=== PATIENT | female | born 1960 | race Caucasian/White ===

== ENCOUNTER → 2023-09-02 07:31 | Outpatient (REF) | payer BC, SELFPAY ==
[2023-09-02 08:39] LABS: ALT (SGPT) 24 U/L (0-35); AST (SGOT) 23 U/L (14-36); Albumin 4.3 g/dl (3.5-5.0); Alkaline Phosphatase 92 U/L (38-126); Blood Urea Nitrogen 20 mg/dl (7-17); Calcium 9.4 mg/dl (8.4-10.2); Carbon Dioxide 28 mmol/L (22-30); Chloride 105 mmol/L (98-107); Glucose 110 mg/dl (70-99); Potassium 4.4 mmol/L (3.5-5.1); Sodium 138 mmol/L (135-145); Total Bilirubin 0.7 mg/dl (0.2-1.3); Total Protein 7.1 g/dl (6.3-8.2); eGFR > 60.00
[2023-09-02 08:56] LABS: Glycohemoglobin (HgbA1c) 6.4 % (4.0-5.6)
[2023-09-02 09:07] LABS: TSH 8.16 uIU/ml (0.47-4.68)
[2023-09-02 09:24] LABS: Microalbumin, Random Urine 0.6 mg/dl (0.6-1.7); Microalbumin/creatinine Ratio 3.5 mg/g
== END ==
LOC: REG 07:31
PROVIDERS: ATTENDING PHYSICIAN Internal Medicine Endocrinology, Diabetes & Metabolism; FAMILY PHYSICIAN Nurse Practitioner Family
DX: E11.9 Type 2 diabetes mellitus without complications (principal)
CPT/HCPCS: 36415; 80053; 82043; 82570; 83036; 84443

== ENCOUNTER → 2023-10-09 11:58 | Outpatient (REF) | payer BC, SELFPAY | LOC: RAD 11:58 | PROVIDERS: ATTENDING PHYSICIAN Nurse Practitioner Family | DX: Z87.891 Personal history of nicotine dependence (principal) | CPT/HCPCS: 71271 ==

== ENCOUNTER → 2023-10-20 14:11 | Outpatient (REF) | payer BC, SELFPAY | LOC: WDC 14:11 | PROVIDERS: ATTENDING PHYSICIAN Nurse Practitioner Family | DX: Z12.31 Encounter for screening mammogram for malignant neoplasm of breast (principal) | CPT/HCPCS: 77063; 77067 ==

== ENCOUNTER → 2023-10-23 09:24 | Outpatient (REF) | payer BC, SELFPAY | LOC: RAD 09:24 | PROVIDERS: ATTENDING PHYSICIAN Nurse Practitioner Family | DX: Z13.820 Encounter for screening for osteoporosis (principal) | CPT/HCPCS: 77080 ==

== ENCOUNTER → 2023-11-01 07:54 | Outpatient (REF) | payer BC, SELFPAY ==
[2023-11-01 08:40] LABS: % Basophils 0.9 % (0-2); % Eosinophils 3.4 % (0-6); % Immature Granulocytes 0.3 % (0-0.5); % Lymphocytes 32.5 % (20.5-51.1); % Monocytes 6.6 % (1.7-9.3); % Neutrophils 56.3 % (42.2-75.2); Absolute Basophils 0.1 10^3/uL (0-0.2); Absolute Eosinophils 0.2 10^3/uL (0-0.7); Absolute Lymphocytes 2.1 10^3/uL (1.2-3.4); Absolute Monocytes 0.4 10^3/uL (0.1-0.6); Absolute Neutrophils 3.7 10^3/uL (1.4-6.5); Hemoglobin 13.4 g/dL (12.0-16.0); Mean Corp Hgb Conc. 33.5 g/dL (33.0-37.0); Mean Corpuscular Hgb 30.9 pg (27.0-31.0); Mean Corpuscular Volume 92.4 fL (81.0-99.0); Mean Platelet Volume 9.3 fL (7.4-10.4); Nucleated Red Blood Cells % 0 %; Platelet Count 349 10^3/uL (130-400); Red Blood Cell Count 4.33 10^6/uL (4.20-5.40); Red Cell Dist. Width 13.1 % (11.5-14.5); White Blood Cell Count 6.5 10^3/uL (4.8-10.8)
[2023-11-01 09:18] LABS: ALT (SGPT) 23 U/L (0-35); AST (SGOT) 21 U/L (14-36); Alkaline Phosphatase 82 U/L (38-126); Blood Urea Nitrogen 20 mg/dl (7-17); Carbon Dioxide 27 mmol/L (22-30); Chloride 105 mmol/L (98-107); Glucose 125 mg/dl (70-99); HDL Cholesterol 71 mg/dl; LDL Cholesterol, Calculated 129 mg/dl; Potassium 4.7 mmol/L (3.5-5.1); Sodium 138 mmol/L (135-145); Total Bilirubin 0.5 mg/dl (0.2-1.3); Total Cholesterol 226 mg/dl (50-199); Total Protein 6.8 g/dl (6.3-8.2); Triglyceride 131 mg/dl (10-149); Very Low Density Lipoprotein 26 mg/dl (0-30); eGFR > 60.00
[2023-11-01 09:42] LABS: TSH Reflex To Free T4 7.74 uIU/ml (0.47-4.68)
[2023-11-01 10:13] LABS: Free T4 0.66 ng/dl (0.78-2.19)
== END ==
LOC: REG 07:54
PROVIDERS: ATTENDING PHYSICIAN Nurse Practitioner Family
DX: Z00.00 Encounter for general adult medical examination without abnormal findings (principal)
CPT/HCPCS: 36415; 80053; 80061; 84439; 84443; 85025

== ENCOUNTER 2024-01-11 16:00 | Emergency (ER) | payer BC, SELFPAY ==
[2024-01-11 16:54] VITALS: BMI 38.7
[2024-01-11] MEDS: VALIUM 5 MG PO (17:39)
[2024-01-11 18:07] VITALS: BP 165/90
[2024-01-11 18:15] LABS: Urine Albumin Negative (Neg - Trace); Urine Bilirubin Negative (Negative); Urine Character Clear (Clear); Urine Color Yellow; Urine Glucose Negative (Negative); Urine Ketone 1+ (Negative); Urine Leukocyte Trace (Negative); Urine Nitrite Negative (Negative); Urine Occult Blood 1+ (Negative); Urine Specific Gravity 1.025 (<1.030); Urine Urobilinogen Negative (Neg - 1+)
[2024-01-11 18:23] LABS: Urine Calcium Oxalate Crystals Present
--- NOTE | 2024-01-11 18:23 | ED.GENMED ---
History of Present Illness
General
Chief Complaint: Back Pain
Source: patient
Exam Limitations: none
Time Seen by Provider: 01/11/24 16:47
Nursing documentation reviewed up to this point in time: agreed with
History of Present Illness
History of Present Illness:
63-year-old female with past medical history of hypertension hyperlipidemia presenting to the emergency department today with concerns of back discomfort started 3 days ago without specific trauma. Denies any numbness weakness changes in urination
or bowel movements.
Past History
Past History
ED Past Medical History: NIDDM
Social History
Tobacco: Former smoker
Alcohol: Occasional
Personal:
Review of Systems
Review of Systems
Allergies reviewed?: Yes
All Other Systems: ROS reviewed and negative except as documented in HPI and ROS
Phy Exam
Physical Exam
Physical Exam:
GENERAL: Alert , in no apparent distress
EYE: pupils equal and reactive
NECK: Supple, no significant adenopathy.
ENT: o/p clr, mmm.
CARDIAC: Regular rate and rhythm .
LUNGS: Clear breath sounds bilaterally, no acute respiratory distress, no wheezes/rales/rhonchi
ABDOMEN: Soft, without focal tenderness, no r/g, no cvat
NEUROLOGICAL: Alert and oriented, no focal neuro deficits
SKIN: Warm and dry, skin intact.
MUSCULOSKELETAL: No edema, well perfused.
PSYCH: Normal and appropriate interaction.
Course
Orders/Labs/Results
Orders:
Orders
01/11/24 17:11
Diazepam [Valium] 5 mg PO NOW STA
Lumbar Spine, 2 or 3 View [CR Lumbar Spine 2 Or 3 Views] Urgent
Comment:
Reason For Exam: low back pain
01/11/24 18:10
UA Reflex to Culture [Urinalysis Reflex To Culture] Urgent
Date Specimen was Collected: 01/11/24
Time Specimen was Collected: 16:59
Urine Microscopic Reflex Cult Urgent
Abnormal Lab Results
01/11/24
18:10
Urine Ketones 1+ A
(Negative)
Ur Occult Blood Reflex 1+ A
(Negative)
Leukocyte Esterase Rfl Trace A
(Negative)
Urine RBC 3-6 A /HPF
(0-2)
Urine Bacteria (Reflex) Few A
(Negative)
Vital Signs
Initial and Last Documented VS:
Initial Vital Signs
Temp Pulse Resp Pulse Ox
98.8 F 89 18 95
01/11/24 16:02 01/11/24 16:02 01/11/24 16:02 01/11/24 16:02
Last Documented Vital Signs
Temp Pulse Resp BP Pulse Ox
98.8 F 83 18 165/90 98
01/11/24 16:02 01/11/24 18:07 01/11/24 18:07 01/11/24 18:07 01/11/24 18:07
MDM/Problems Addressed
MDM/Problems Addressed:
63-year-old female presenting to the emergency department today with concerns of back discomfort with some radiation to lower abdomen ongoing for the last 3 days specifically with movement with movement and different positioning. Blood pressure
slightly elevated upon arrival otherwise vital signs are normal. Urinalysis showing trace leuks +1 blood. X-ray without acute abnormalities to the low back. Concerning is very positional and specifically associate with movement making mechanical
discomfort most likely. No significant urinary symptoms. Story not consistent with a kidney stone. Patient otherwise stable for discharge return precautions given.
*Critical Care Note
Total Time (30-74mins, 75-104mins- exclusive of procedures): Not Applicable
ED Attending Note
-
Portions of this chart may have been created with voice recognition software.� Occasional wrong word or��sound alike� substitutions may have occurred due to the inherent limitations of voice recognition software.
Discharge Plan
Departure
Patient Disposition: Home (Routine Discharge)
Date of Disposition: 01/11/24
Time of Disposition: 19:25
Patient with high blood pressure during this ER visit?: No
Condition: Good
Covid-19: Not Applicable
Discharge Problem:
Low back pain
Instructions: Low Back Pain (DC)
Prescriptions:
New
cyclobenzaprine 10 mg tablet
10 mg PO HS PRN (Reason: muscle spasm) Qty: 5 0RF
No Action
cetirizine [Zyrtec] 10 MG tablet
10 mg PO DAILY
doxycycline hyclate 100 MG capsule
100 mg PO DAILY
trazodone 50 MG tablet
50 mg PO QPM
insulin lispro [Humalog KwikPen Insulin] 100 UNIT/ML insulin pen
4 - 5 units SC AC
Patient Comments:
SLIDING SCALE
insulin degludec [Tresiba FlexTouch U-100] 100 unit/mL (3 mL) Insulin Pen
12 unit SC BID
enalapril maleate [Vasotec] 10 mg Tablet
10 mg PO DAILY
Referrals:
Diana Szymanski CRNP [Family Provider] -
Activity Restrictions/Additional Instructions:
You came to the emergency department today with concerns of back pain. You had a normal x-ray. He had a small mount of red blood cells in your urine please have this repeated as an outpatient. Return to the emergency department for any worsening,
new or concerning symptoms.
Interventions
Interventions:
*Risk Screen - Suicide Last Done: 01/11/24 16:54
*General Assessment Last Done: 01/11/24 16:54
*Neglect/Abuse Screening Last Done: 01/11/24 16:54
ED- Fall Risk Assessment Last Done: 01/11/24 18:07
*ED COVID-19 Vaccine History Last Done: 01/11/24 16:54
*Nursing Disposition Last Done: 01/11/24 20:08
ED-Musculoskeletal Assessment Last Done: 01/11/24 16:58
Discharge Date and Time
Discharge Date/Time: 01/11/24 20:08
Print Language: SWISS
[2024-01-11 18:24] LABS: Urine Bacteria Few (Negative); Urine White Cell 0-2 /HPF (0-5)
== END 2024-01-11 20:08 | disposition home or self-care (01) ==
LOC: EMR 16:00
PROVIDERS: Physician Assistant; EMERGENCY PHYSICIAN Emergency Medicine; FAMILY PHYSICIAN Nurse Practitioner Family
DX: M54.50 Low back pain, unspecified (principal); M47.816 Spondylosis without myelopathy or radiculopathy, lumbar region; E78.5 Hyperlipidemia, unspecified; I10 Essential (primary) hypertension; E11.9 Type 2 diabetes mellitus without complications; Z87.891 Personal history of nicotine dependence
CPT/HCPCS: 99283; 72100; 81003; 81015

== ENCOUNTER → 2024-03-13 09:39 | Outpatient (REF) | payer BC, SELFPAY ==
[2024-03-13 10:51] LABS: ALT (SGPT) 24 U/L (0-35); AST (SGOT) 22 U/L (14-36); Albumin 4.1 g/dl (3.5-5.0); Alkaline Phosphatase 89 U/L (38-126); Blood Urea Nitrogen 17 mg/dl (7-17); Calcium 9.7 mg/dl (8.4-10.2); Carbon Dioxide 26 mmol/L (22-30); Chloride 104 mmol/L (98-107); Glucose 138 mg/dl (70-99); HDL Cholesterol 68 mg/dl; LDL Cholesterol, Calculated 141 mg/dl; Potassium 4.8 mmol/L (3.5-5.1); Sodium 140 mmol/L (135-145); Total Bilirubin 0.4 mg/dl (0.2-1.3); Total Cholesterol 233 mg/dl (50-199); Total Protein 6.7 g/dl (6.3-8.2); Triglyceride 123 mg/dl (10-149); Very Low Density Lipoprotein 24 mg/dl (0-30); eGFR > 60.00
[2024-03-13 11:05] LABS: Free T4 0.55 ng/dl (0.78-2.19)
[2024-03-13 11:18] LABS: TSH 5.72 uIU/ml (0.47-4.68)
[2024-03-13 13:24] LABS: Glycohemoglobin (HgbA1c) 6.3 % (4.0-5.6)
== END ==
LOC: REG 09:39
PROVIDERS: ATTENDING PHYSICIAN Internal Medicine Endocrinology, Diabetes & Metabolism; FAMILY PHYSICIAN Nurse Practitioner Family
DX: E11.9 Type 2 diabetes mellitus without complications (principal)
CPT/HCPCS: 36415; 80053; 80061; 83036; 84439; 84443

== ENCOUNTER → 2024-05-03 10:33 | Outpatient (REF) | payer BC, SELFPAY ==
[2024-05-03 12:11] LABS: Free T4 0.55 ng/dl (0.78-2.19)
[2024-05-03 12:25] LABS: TSH 4.85 uIU/ml (0.47-4.68)
== END ==
LOC: REG 10:33
PROVIDERS: ATTENDING PHYSICIAN Internal Medicine Endocrinology, Diabetes & Metabolism; FAMILY PHYSICIAN Nurse Practitioner Family
DX: E03.9 Hypothyroidism, unspecified (principal)
CPT/HCPCS: 36415; 84439; 84443

== ENCOUNTER → 2024-06-09 16:14 | Outpatient (REF) | payer BC, SELFPAY | LOC: RAD 16:14 | PROVIDERS: ATTENDING PHYSICIAN Orthopaedic Surgery Hand Surgery; FAMILY PHYSICIAN Nurse Practitioner Family | DX: M25.532 Pain in left wrist (principal); M25.531 Pain in right wrist | CPT/HCPCS: 73110 ==

== ENCOUNTER 2024-06-16 06:30 | Day surgery (SDC) | payer BC, SELFPAY ==
[2024-06-16 07:49] LABS: Glucose - Point of Care 124 mg/dl (70-99)
[2024-06-16 07:54] VITALS: BMI 40.8
[2024-06-16 07:55] VITALS: BMI 40.8
[2024-06-16] MEDS: ACUVAIL 1 DROPS RIGHT EYE (07:55)
[2024-06-16 07:56] VITALS: BP 157/83
[2024-06-16] MEDS: MYDRIACYL 1 DROP RIGHT EYE (07:56)
[2024-06-16] MEDS: NEO-SYNEPHRINE 2.5% OPH SOL. 1 DROP RIGHT EYE (07:56)
[2024-06-16] MEDS: POLYTRIM OPHTHALMIC SOLUTION 1 DROP RIGHT EYE (07:56)
[2024-06-16] MEDS: AKTEN OPHTHALMIC GEL 1 ML RIGHT EYE (07:57)
[2024-06-16] MEDS: ALCAINE 0.5% EYE DROPS 1 DROP RIGHT EYE (07:57)
[2024-06-16] MEDS: CYCLOGYL 1% EYE DROPS 1 DROP RIGHT EYE (07:57)
[2024-06-16] MEDS: PRED FORTE 1% EYE DROPS 1 DROP RIGHT EYE (07:57)
[2024-06-16 10:18] VITALS: BP 142/82
== END 2024-06-16 10:45 | disposition home or self-care (01) ==
LOC: SDS 06:30
PROVIDERS: ATTENDING PHYSICIAN Ophthalmology
DX: H25.811 Combined forms of age-related cataract, right eye (principal)
CPT/HCPCS: 66984; V2632; 82962

== ENCOUNTER → 2024-09-11 08:55 | Outpatient (REF) | payer BC, SELFPAY ==
[2024-09-11 10:38] LABS: Free T4 0.56 ng/dl (0.78-2.19); Prolactin 16.5 ng/ml (3.0-18.6)
[2024-09-11 10:53] LABS: Estradiol 48.9 pg/ml
[2024-09-11 10:54] LABS: Cortisol, Random 15.9 ug/dl
[2024-09-11 11:40] LABS: TSH 8.08 uIU/ml (0.47-4.68)
== END ==
LOC: REG 08:55
PROVIDERS: ATTENDING PHYSICIAN Internal Medicine Endocrinology, Diabetes & Metabolism; FAMILY PHYSICIAN Nurse Practitioner Family
DX: E03.9 Hypothyroidism, unspecified (principal)
CPT/HCPCS: 36415; 82533; 82670; 83001; 83002; 84146; 84439; 84443

== ENCOUNTER → 2024-11-27 07:42 | Outpatient (REF) | payer BC, SELFPAY ==
[2024-11-27 08:25] LABS: % Basophils 0.7 % (0-2); % Eosinophils 2.8 % (0-6); % Immature Granulocytes 0.3 % (0-0.5); % Lymphocytes 32.3 % (20.5-51.1); % Monocytes 7.8 % (1.7-9.3); % Neutrophils 56.1 % (42.2-75.2); Absolute Basophils 0.1 10^3/uL (0-0.2); Absolute Eosinophils 0.2 10^3/uL (0-0.7); Absolute Lymphocytes 2.2 10^3/uL (1.2-3.4); Absolute Monocytes 0.5 10^3/uL (0.1-0.6); Absolute Neutrophils 3.7 10^3/uL (1.4-6.5); Hematocrit 39.5 % (37.0-47.0); Hemoglobin 13.2 g/dL (12.0-16.0); Mean Corp Hgb Conc. 33.4 g/dL (33.0-37.0); Mean Corpuscular Hgb 31.1 pg (27.0-31.0); Mean Corpuscular Volume 92.9 fL (81.0-99.0); Mean Platelet Volume 9.3 fL (7.4-10.4); Nucleated Red Blood Cells % 0 %; Platelet Count 355 10^3/uL (130-400); Red Blood Cell Count 4.25 10^6/uL (4.20-5.40); Red Cell Dist. Width 13.1 % (11.5-14.5); White Blood Cell Count 6.7 10^3/uL (4.8-10.8)
[2024-11-27 09:07] LABS: ALT (SGPT) 28 U/L (0-35); AST (SGOT) 20 U/L (14-36); Albumin 4.2 g/dl (3.5-5.0); Alkaline Phosphatase 78 U/L (38-126); Blood Urea Nitrogen 17 mg/dl (7-17); Calcium 9.7 mg/dl (8.4-10.2); Carbon Dioxide 27 mmol/L (22-30); Chloride 106 mmol/L (98-107); Glucose 135 mg/dl (70-99); HDL Cholesterol 61 mg/dl; LDL Cholesterol, Calculated 127 mg/dl; Potassium 4.7 mmol/L (3.5-5.1); Sodium 139 mmol/L (135-145); Total Bilirubin 0.5 mg/dl (0.2-1.3); Total Cholesterol 213 mg/dl (50-199); Total Protein 7.1 g/dl (6.3-8.2); Triglyceride 129 mg/dl (10-149); Very Low Density Lipoprotein 25 mg/dl (0-30); eGFR > 60.00
[2024-11-27 09:19] LABS: Microalbumin, Random Urine 1.4 mg/dl (0.6-1.7); Microalbumin/creatinine Ratio 8.7 mg/g
[2024-11-27 09:49] LABS: Glycohemoglobin (HgbA1c) 6.8 % (4.0-5.6)
[2024-11-27 09:57] LABS: Free T4 0.93 ng/dl (0.78-2.19)
== END ==
LOC: REG 07:42
PROVIDERS: ATTENDING PHYSICIAN Nurse Practitioner Family
DX: E11.65 Type 2 diabetes mellitus with hyperglycemia (principal); I10 Essential (primary) hypertension; E03.9 Hypothyroidism, unspecified
CPT/HCPCS: 36415; 80053; 80061; 82043; 82570; 83036; 84439; 84443; 85025

== ENCOUNTER → 2025-03-14 08:39 | Outpatient (REF) | payer BC, SELFPAY ==
[2025-03-14 10:08] LABS: ALT (SGPT) 26 U/L (0-35); AST (SGOT) 20 U/L (14-36); Albumin 4.1 g/dl (3.5-5.0); Alkaline Phosphatase 89 U/L (38-126); Blood Urea Nitrogen 16 mg/dl (7-17); Calcium 9.8 mg/dl (8.4-10.2); Carbon Dioxide 27 mmol/L (22-30); Chloride 105 mmol/L (98-107); Glucose 124 mg/dl (70-99); HDL Cholesterol 58 mg/dl; LDL Cholesterol, Calculated 138 mg/dl; Potassium 4.8 mmol/L (3.5-5.1); Sodium 137 mmol/L (135-145); Total Protein 7.0 g/dl (6.3-8.2); Very Low Density Lipoprotein 24 mg/dl (0-30); eGFR > 60.00
[2025-03-14 10:22] LABS: TSH 3.14 uIU/ml (0.47-4.68)
[2025-03-14 10:40] LABS: Microalb - Urine Creatinine 103.800 mg/dl
[2025-03-14 10:45] LABS: Microalbumin, Random Urine 0.7 mg/dl (0.6-1.7)
[2025-03-14 14:56] LABS: Glycohemoglobin (HgbA1c) 6.9 % (4.0-5.6)
== END ==
LOC: REG 08:39
PROVIDERS: ATTENDING PHYSICIAN Internal Medicine Endocrinology, Diabetes & Metabolism; FAMILY PHYSICIAN Nurse Practitioner Adult Health
DX: E11.9 Type 2 diabetes mellitus without complications (principal)
CPT/HCPCS: 36415; 80053; 80061; 82043; 82570; 83036; 84439; 84443

== ENCOUNTER → 2025-04-25 11:55 | Outpatient (REF) | payer BC, SELFPAY | LOC: RAD 11:55 | PROVIDERS: ATTENDING PHYSICIAN Nurse Practitioner Family | DX: Z87.891 Personal history of nicotine dependence (principal) | CPT/HCPCS: 71271 ==

== ENCOUNTER → 2025-05-23 13:25 | Outpatient (REF) | payer BC, SELFPAY | LOC: WDC 13:25 | PROVIDERS: ATTENDING PHYSICIAN Obstetrics & Gynecology Gynecology; FAMILY PHYSICIAN Family Medicine | DX: Z12.31 Encounter for screening mammogram for malignant neoplasm of breast (principal); Z12.39 Encounter for other screening for malignant neoplasm of breast | CPT/HCPCS: 77063; 77067 ==